=== PATIENT | female | born 1965 | race Caucasian/White ===

== ENCOUNTER 2017-08-18 11:43 | Outpatient (CLI) | payer OTHER ==
--- NOTE | 2017-08-21 14:14 | Mammography Report ---
DIGITAL SCREENING MAMMOGRAM: 08/18/2017 CLINICAL INDICATION: A 52-year-old with history of benign biopsy, for screening. COMPARISON: 11/03/2011, 02/17/2010. TECHNIQUE: Routine CC and MLO projections were obtained of the breasts. Bilateral laterally exaggerated craniocaudal views. FINDINGS: The breasts demonstrate heterogeneously dense fibroglandular parenchyma bilaterally. Coarse and punctate, typically benign calcifications are present. Excisional biopsy changes are seen in the left breast. No suspicious masses, clustered microcalcifications, or regions of architectural distortion are identified. IMPRESSION: BENIGN FINDINGS. RECOMMENDATION: ROUTINE ANNUAL SCREENING UNLESS OTHERWISE CLINICALLY INDICATED. BIRADS CATEGORY 2-BENIGN FINDINGS. STANDARD QUALIFYING STATEMENTS: 1. This examination was reviewed with the aid of Computer-Aided Detection (CAD) . 2. A negative or benign imaging report should not delay biopsy if clinically suspicious findings are present. Consider surgical consultation if warranted. More than 5 % of cancers are not identified by imaging. 3. Dense breasts may obscure an underlying neoplasm. TD: 08/21/2017 14:12 CARYL
== END 2017-08-18 11:44 | disposition home or self-care (01) ==
LOC: DI.S 11:43
PROVIDERS: ATTEND Family Medicine
DX: Z12.31 Encounter for screening mammogram for malignant neoplasm of breast (principal)
CPT/HCPCS: 77067

== ENCOUNTER 2017-08-29 13:33 | Outpatient (CLI) | payer BC ==
--- NOTE | 2017-08-29 16:08 | XRAY Report ---
TWO-VIEW THORACIC SPINE: 08/29/2017 INDICATION: Severe back pain. FINDINGS: Frontal and lateral views of the thoracic spine are compared to previous two-view chest x-ray of 11/12/2010. Mild degenerative disk disease is present. There is no evidence of acute fracture or subluxation. No paraspinal hematoma is seen. IMPRESSION: MILD DEGENERATIVE DISK DISEASE. NO EVIDENCE OF ACUTE COMPRESSION FRACTURE. TD: 08/29/2017 16:07
--- NOTE | 2017-08-29 16:10 | XRAY Report ---
THREE VIEW LUMBAR SPINE: 08/29/2017 CLINICAL INDICATION: Severe low back pain. FINDINGS: AP, lateral, coned down views of the lumbar spine demonstrate minimal irregularity of the superior endplate of L3, which may represent a minimal compression fracture. Mild degenerative disk and facet disease is present. There is right hemisacralization of the L5 vertebral body. The bowel gas pattern is normal. IMPRESSION: MINIMAL IRREGULARITY OF THE SUPERIOR ENDPLATE OF L3, SUSPICIOUS FOR A MINIMAL COMPRESSION FRACTURE. MILD DEGENERATIVE CHANGES. TD: 08/29/2017 16:09
== END 2017-08-29 13:34 | disposition home or self-care (01) ==
LOC: DI.S 13:33
PROVIDERS: ATTEND Family Medicine
DX: M51.36 Other intervertebral disc degeneration, lumbar region (principal); M47.896 Other spondylosis, lumbar region; M51.34 Other intervertebral disc degeneration, thoracic region
CPT/HCPCS: 72070; 72100